=== PATIENT | male | born 1980 ===

== ENCOUNTER → 2020-04-04 | Outpatient (CLI) | payer OTHER ==
[2020-04-04 13:01] LABS: Hepatitis B Core IgM Negative; Hepatitis B Surface Antigen Negative (Negative)
== END | disposition home or self-care (01) ==
LOC: LAB 10:01
PROVIDERS: ATTEND Internal Medicine Nephrology
DX: A64 Unspecified sexually transmitted disease (principal)
CPT/HCPCS: 36415; 86703; 86705; 86803; 87340